=== PATIENT | female | born 1965 | race Caucasian/White ===

== ENCOUNTER 2020-10-08 10:23 | Emergency (ER) | payer BC ==
[2020-10-09 14:07] LABS: SARS-CoV-2 NAA Detected (Not Detected)
== END 2020-10-08 10:40 | disposition home or self-care (01) ==
LOC: JVIRT 10:23
DX: R09.81 Nasal congestion (principal); Z20.822 Contact with and (suspected) exposure to COVID-19
CPT/HCPCS: C9803; G2251-GT; U0003; U0005

== ENCOUNTER 2022-09-17 07:39 | Day surgery (SDC) | payer BC ==
[2022-09-10 11:09] VITALS: BMI 27.8
[2022-09-17] MEDS ORDERED: PROPOFOL 80 ML ONE (07:57)
[2022-09-17] MEDS ORDERED: GLYCOPYRROLATE 0.2 MG/1 ML VIAL ONE (07:58)
[2022-09-17] MEDS ORDERED: ePHEDrine SULFATE 50 MG/1 ML AMPULE ONE (07:58)
[2022-09-17] MEDS ORDERED: EPINEPHrine 1:10,000 (P-F SYR) 1 MG/10 ML DISP.SYRIN ONE (07:58)
[2022-09-17] MEDS ORDERED: PHENYLEPHRINE HCL 10 MG/1 ML SINGLE DOSE VIAL ONE (07:58)
[2022-09-17 09:19] VITALS: BP 99/61; PULSE 83; TEMP 97
[2022-09-17 09:32] VITALS: RESP 17
== END 2022-09-17 09:15 | disposition home or self-care (01) ==
LOC: FASU-ENDO 07:39
PROVIDERS: ATTEND Internal Medicine Gastroenterology
PROC: 0DJD8ZZ Inspection of Lower Intestinal Tract, Via Natural or Artificial Opening Endoscopic (ICD-10-PCS; principal; 2022-09-17 08:16)
DX: Z12.11 Encounter for screening for malignant neoplasm of colon (principal); K57.30 Diverticulosis of large intestine without perforation or abscess without bleeding; Z83.71 Family history of colonic polyps